=== PATIENT | male | born 1940 | race Caucasian/White ===

== ENCOUNTER 2018-08-21 10:26 | Emergency (ER) | payer OTHER, SELFPAY ==
[2018-08-21 10:50] VITALS: BP 135/73; PULSE 64; RESP 16; TEMP 36.7; O2SAT 98
--- NOTE | 2018-08-21 11:01 | DI.RAD.S_ITS ---
PROCEDURE: XR SHOULDER LT MIN 2V INDICATIONS: sent by PCP, fx, dislocation? TECHNIQUE: 3 views of the shoulder were acquired. COMPARISON: None. FINDINGS: Bones: Left humeral neck fracture is noted. Left humeral distal fracture fragment is proximally displaced. Chronic appearing left rib fractures. Soft tissues: No suspicious soft tissue calcifications. IMPRESSION: Proximal left humerus fracture. Dictated by: America Turner MD, PhD on 08/21/2018 at 11:26 Approved by: America Turner MD, PhD on 08/21/2018 at 11:31
--- NOTE | 2018-08-21 11:22 | ED.UPPEXIN ---
HPI - Extremity Injury (Upper) General Chief Complaint: Extremity Injury, Upper Stated Complaint: FRACTURE SHOULDER/DISLOCATED LT Time Seen by Provider: 08/21/18 10:30 Source: patient and family Mode of arrival: ambulatory Limitations: no limitations History of Present Illness HPI narrative: 77-year-old male nonsmoker with history of metastatic prostate cancer presents for evaluation of a known left shoulder injury suffered Monday night. The patient suffered a mechanical fall and landed on his shoulder and then went to bed. Upon waking he complained of shoulder pain and was seen yesterday at an outside clinic, x-ray was performed and found a fracture dislocation. [facility] encourage them to come to the emergency department for evaluation of the dislocation. The patient denies any other injuries such as head neck or back pain. He has significant chronic pain and takes MS Contin and occasionally oxycodone daily. He is a bit somnolent but arousable and at baseline per son. He has significant pain with range of motion and denies any numbness, tingling or weakness complaint: injury to: left Onset (ago): day(s) Place: home Severity: moderate Relieving factors: immobilization Exacerbating factors: movement of extremity Context: fall and direct blow Associated symptoms: denies other symptoms Related Data Home Medications Medication Instructions Recorded Confirmed abiraterone [Zytiga] 1,000 mg PO DAILY 08/21/18 08/21/18 apixaban [Eliquis] 5 mg PO BID 08/21/18 08/21/18 docusate sodium 100 mg PO BID 08/21/18 08/21/18 furosemide 20 mg PO BID 08/21/18 08/21/18 morphine 15 mg PO Q8H 08/21/18 08/21/18 morphine 100 mg PO Q8H 08/21/18 08/21/18 oxycodone 15 mg PO PRN PRN 08/21/18 08/21/18 potassium chloride 10 meq PO BID 08/21/18 08/21/18 prednisone 5 mg PO BID 08/21/18 08/21/18 Allergies Allergy/AdvReac Type Severity Reaction Status Date / Time No Known Drug Allergies Allergy Verified 08/21/18 10:50 Review of Systems Constitutional Denies chills, Denies fever(s), Denies lethargy and Denies weakness Eyes Denies change in vision, Denies eye discharge, Denies irritation and Denies loss of vision ENT Ears, Nose, Mouth, and Throat: Denies change in voice, Denies neck pain and Denies sore throat Cardiovascular Denies chest pain, Denies irregular heart rhythm, Denies lightheadedness, Denies palpitations, Denies dyspnea, Denies dyspnea on exertion and Denies orthopnea Respiratory Denies cough, Denies dyspnea, Denies dyspnea on exertion and Denies wheezing Gastrointestinal Gastrointestinal: Denies abdominal pain, Denies change in bowel habits, Denies diarrhea, Denies nausea and Denies vomiting Genitourinary Denies hematuria, Denies flank pain, Denies urinary incontinence and Denies urinary urgency Musculoskeletal Reports joint swelling, Reports limited range of motion and Denies neck pain Integumentary/Breasts Denies pruritus, Denies erythema, Denies rash and Denies wounds Neurologic Denies confusion, Denies loss of vision and Denies weakness Psychiatric Denies anxiety, Denies confusion, Denies depression, Denies homicidal ideation and Denies suicidal ideation Endocrine Denies palpitations Hematologic/Lymphatic Denies easy bruising Allergic/Immunologic Denies wheezing Exam Narrative Exam Narrative: GENERAL: 77-year-old male appears stated age. He is somnolent, medicated on MS Contin, but arousable. He appears chronically ill HEAD: Atraumatic. Normocephalic. No temporal or scalp tenderness. EYES: Pupils equal round and reactive. Extraocular motions intact. No scleral icterus. No injection or drainage. ENT: Nose without bleeding, purulent drainage or septal hematoma. Throat without erythema, tonsillar hypertrophy or exudate. Uvula midline. Airway patent. NECK: Trachea midline. No JVD or lymphadenopathy. Supple, nontender, no meningeal signs. CARDIOVASCULAR: Regular rate and rhythm without murmurs, gallops, or rubs. RESPIRATORY: Clear to auscultation. Breath sounds equal bilaterally. No wheezes, rales, or rhonchi. GASTROINTESTINAL: Abdomen soft, non-tender, nondistended. No hepato-splenomegaly, or palpable masses. No guarding. EXTREMITIES: Left upper extremity in splint. Closed, isolated and neurovascularly intact. Cap refill less than 2 sec. No pain at wrist or elbow BACK: Nontender without deformity or crepitance. No flank tenderness. NEURO: AOx3. SKIN: No rash or erythema. Initial Vital Signs Initial Vital Signs: Vital Signs Temperature 98.1 F 08/21/18 10:50 Pulse Rate 64 08/21/18 10:50 Respiratory Rate 16 08/21/18 10:50 Blood Pressure 135/73 08/21/18 10:50 Pulse Oximetry 98 08/21/18 10:50 Course Orders Ordered: ED Orders 08/21/18 11:01 XR shoulder LT min 2V Stat 08/21/18 12:34 CT UE LT wo con Stat Consultations Consultation #1: Upon completion shoulder x-ray and consulted with Orthopedic surgery to see if they had been involved in the discussion about patient coming to the [facility]. We share the opinion that the images do not demonstrate a dislocated shoulder and then no procedural sedation or procedure at all is needed. Dr. garcia has reviewed the images and recommends CT of the shoulder for further evaluation. Vital Signs - 8 hr 08/21/18 12:13 08/21/18 12:30 Pulse Rate 65 Respiratory Rate 17 Blood Pressure [Right Arm] 130/58 L 109/65 Pulse Oximetry 95 MDM - Extremity Injury (Upper) Medical Records Attestation: I reviewed the patient's medical records. Lab Data Attestation: I reviewed the patient's lab results. Imaging Data Shoulder Xray: Radiologist's impression: [address] [address] XRay Report Signed Patient: Evan Huffman HMR#: [id number] : 1940Acct:[id number] Age/Sex: 77 / MDate of Service: 08/21/18 Loc: ED Accession Number: [id number] Procedure: XR shoulder LT min 2V Ordering Provider: Eliseo Rebolledo D.O. PROCEDURE: XR SHOULDER LT MIN 2V INDICATIONS: sent by PCP, fx, dislocation? TECHNIQUE: 3 views of the shoulder were acquired. COMPARISON: None. FINDINGS: Bones: Left humeral neck fracture is noted. Left humeral distal fracture fragment is proximally displaced. Chronic appearing left rib fractures. Soft tissues: No suspicious soft tissue calcifications. IMPRESSION: Proximal left humerus fracture. Dictated by: America Turner MD, PhD on 08/21/2018 at 11:[address]: Radiologist's impression: [address] [address] [address] Scan Report Signed Patient: Evan Huffman HMR#: [id number] : 1940Acct:[id number] Age/Sex: 77 / MDate of Service: 08/21/18 Loc: ED Accession Number: [id number] Procedure: CT UE LT wo con Ordering Provider: Eliseo Rebolledo D.O. PROCEDURE: CT UE LT WO CON INDICATIONS: proximal humerus fx, request per ortho TECHNIQUE: Noncontrast 1-1.5 mm thick sections acquired from the acromioclavicular joint to the inferior scapula, with coronal and sagittal reformatting. COMPARISON: [facility], [place], BONE SCAN WHOLE BODY, 08/25/2016, 14:54. [facility], , XR SHOULDER LT MIN 2V, 08/21/2018, 11:07. FINDINGS: Image quality: Excellent. Bones: Fracture of the proximal left humerus is noted. Fracture lucencies extend through the humeral neck and the greater tuberosity. The humeral shaft is displaced approximately 1.2 cm proximally. Greater tuberosity fracture is nondisplaced. Humeral head is slightly angulated approximately 30-40? laterally. Chronic appearing left fourth, fifth, sixth, seventh, eighth and ninth rib fractures are noted. Multiple sclerotic lesions are noted in the spine, ribs and left clavicle compatible with known osseous metastatic disease. Soft tissues: A soft tissue hematoma noted adjacent to the proximal left humerus fracture. Emphysematous changes noted in the visualized lungs. Left lung is clear of acute opacities. IMPRESSION: 1. Acute, comminuted proximal right humerus fracture (NEER 2 part fracture). 3. Chronic appearing left rib fractures. 4. Sclerotic osseous metastatic disease. Dictated by: America Turner MD, PhD on 08/21/2018 at 12:24 Approved by: America Turner MD, PhD on 08/21/2018 at 12:33 [facility] Narrative Medical decision making narrative: 77-year-old male with metastatic prostate cancer presents with son for evaluation of fracture dislocation of his left shoulder. Patient had obtained x-rays at an outside facility and after consultation with orthopedics they were encouraged to come see us. Today's x-rays do not demonstrate any dislocation. Patient is already in the appropriate splint and has significant pain meds at his disposal at home. patient and son have had their questions answered to their apparent satisfaction Discharge Plan Departure Patient Disposition: Home Clinical Impression: Fracture of humerus Qualifiers: Encounter type: subsequent encounter Humerus Location: proximal Fracture type: closed Fracture alignment: displaced Laterality: left Fracture healing: with routine healing Discharge Date/Time: 08/21/18 13:07 Interventions: ED Discharge Assessment Last Done: 08/21/18 12:52 Instructions: DI for Shoulder Fracture Activity Restrictions/Additional Instructions: *You have been diagnosed with [ left proximal humerus fracture ] *What to do: *continue to take medications as directed *Follow up with [facility] *Return to ER if you should have any new, worsening or concerning symptoms, such as [increasing pain, numbness, tingling, or weakness ] Prescriptions: No Action morphine 100 mg Tablet Extended Release 100 mg PO Q8H RF: 0 morphine 15 mg Tablet Extended Release 15 mg PO Q8H RF: 0 furosemide 20 mg Tablet 20 mg PO BID RF: 0 Eliquis 5 mg Tablet 5 mg PO BID RF: 0 prednisone 5 mg tablet 5 mg PO BID RF: 0 potassium chloride 10 mEq Tablet Extended Release 10 meq PO BID RF: 0 oxycodone 15 mg Tablet 15 mg PO PRN PRN (Reason: Breakthrough Pain) RF: 0 docusate sodium 100 mg Tablet 100 mg PO BID RF: 0 abiraterone [Zytiga] 250 mg Tablet 1,000 mg PO DAILY RF: 0 Referrals: Dio Alan MD [Physician] - Dio Muniz MD [Primary Care Provider] -
--- NOTE | 2018-08-21 11:26 | ED_ITS ---
HPI - Extremity Injury (Upper) General Chief Complaint: Extremity Injury, Upper Stated Complaint: FRACTURE SHOULDER/DISLOCATED LT Time Seen by Provider: 08/21/18 10:30 Source: patient and family Mode of arrival: ambulatory Limitations: no limitations History of Present Illness HPI narrative: 77-year-old male nonsmoker with history of metastatic prostate cancer presents for evaluation of a known left shoulder injury suffered Monday night. The patient suffered a mechanical fall and landed on his shoulder and then went to bed. Upon waking he complained of shoulder pain and was seen yesterday at an outside clinic, x-ray was performed and found a fracture dislocation. [facility] encourage them to come to the emergency department for evaluation of the dislocation. The patient denies any other injuries such as head neck or back pain. He has significant chronic pain and takes MS Contin and occasionally oxycodone daily. He is a bit somnolent but arousable and at baseline per son. He has significant pain with range of motion and denies any numbness, tingling or weakness complaint: injury to: left Onset (ago): day(s) Place: home Severity: moderate Relieving factors: immobilization Exacerbating factors: movement of extremity Context: fall and direct blow Associated symptoms: denies other symptoms Related Data Home Medications Medication Instructions Recorded Confirmed abiraterone [Zytiga] 1,000 mg PO DAILY 08/21/18 08/21/18 apixaban [Eliquis] 5 mg PO BID 08/21/18 08/21/18 docusate sodium 100 mg PO BID 08/21/18 08/21/18 furosemide 20 mg PO BID 08/21/18 08/21/18 morphine 15 mg PO Q8H 08/21/18 08/21/18 morphine 100 mg PO Q8H 08/21/18 08/21/18 oxycodone 15 mg PO PRN PRN 08/21/18 08/21/18 potassium chloride 10 meq PO BID 08/21/18 08/21/18 prednisone 5 mg PO BID 08/21/18 08/21/18 Allergies Allergy/AdvReac Type Severity Reaction Status Date / Time No Known Drug Allergies Allergy Verified 08/21/18 10:50 Review of Systems Constitutional Denies chills, Denies fever(s), Denies lethargy and Denies weakness Eyes Denies change in vision, Denies eye discharge, Denies irritation and Denies loss of vision ENT Ears, Nose, Mouth, and Throat: Denies change in voice, Denies neck pain and Denies sore throat Cardiovascular Denies chest pain, Denies irregular heart rhythm, Denies lightheadedness, Denies palpitations, Denies dyspnea, Denies dyspnea on exertion and Denies orthopnea Respiratory Denies cough, Denies dyspnea, Denies dyspnea on exertion and Denies wheezing Gastrointestinal Gastrointestinal: Denies abdominal pain, Denies change in bowel habits, Denies diarrhea, Denies nausea and Denies vomiting Genitourinary Denies hematuria, Denies flank pain, Denies urinary incontinence and Denies urinary urgency Musculoskeletal Reports joint swelling, Reports limited range of motion and Denies neck pain Integumentary/Breasts Denies pruritus, Denies erythema, Denies rash and Denies wounds Neurologic Denies confusion, Denies loss of vision and Denies weakness Psychiatric Denies anxiety, Denies confusion, Denies depression, Denies homicidal ideation and Denies suicidal ideation Endocrine Denies palpitations Hematologic/Lymphatic Denies easy bruising Allergic/Immunologic Denies wheezing Exam Narrative Exam Narrative: GENERAL: 77-year-old male appears stated age. He is somnolent, medicated on MS Contin, but arousable. He appears chronically ill HEAD: Atraumatic. Normocephalic. No temporal or scalp tenderness. EYES: Pupils equal round and reactive. Extraocular motions intact. No scleral icterus. No injection or drainage. ENT: Nose without bleeding, purulent drainage or septal hematoma. Throat without erythema, tonsillar hypertrophy or exudate. Uvula midline. Airway patent. NECK: Trachea midline. No JVD or lymphadenopathy. Supple, nontender, no meningeal signs. CARDIOVASCULAR: Regular rate and rhythm without murmurs, gallops, or rubs. RESPIRATORY: Clear to auscultation. Breath sounds equal bilaterally. No wheezes, rales, or rhonchi. GASTROINTESTINAL: Abdomen soft, non-tender, nondistended. No hepato- splenomegaly, or palpable masses. No guarding. EXTREMITIES: Left upper extremity in splint. Closed, isolated and neurovascularly intact. Cap refill less than 2 sec. No pain at wrist or elbow BACK: Nontender without deformity or crepitance. No flank tenderness. NEURO: AOx3. SKIN: No rash or erythema. Initial Vital Signs Initial Vital Signs: Vital Signs Temperature 98.1 F 08/21/18 10:50 Pulse Rate 64 08/21/18 10:50 Respiratory Rate 16 08/21/18 10:50 Blood Pressure 135/73 08/21/18 10:50 Pulse Oximetry 98 08/21/18 10:50 Course Orders Ordered: ED Orders 08/21/18 11:01 XR shoulder LT min 2V Stat 08/21/18 12:34 CT UE LT wo con Stat Consultations Consultation #1: Upon completion shoulder x-ray and consulted with Orthopedic surgery to see if they had been involved in the discussion about patient coming to the [facility]. We share the opinion that the images do not demonstrate a dislocated shoulder and then no procedural sedation or procedure at all is needed. Dr. garcia has reviewed the images and recommends CT of the shoulder for further evaluation. Vital Signs - 8 hr 08/21/18 12:13 08/21/18 12:30 Pulse Rate 65 Respiratory Rate 17 Blood Pressure [Right Arm] 130/58 L 109/65 Pulse Oximetry 95 MDM - Extremity Injury (Upper) Medical Records Attestation: I reviewed the patient's medical records. Lab Data Attestation: I reviewed the patient's lab results. Imaging Data Shoulder Xray: Radiologist's impression: [address] [address] XRay Report Signed Patient: Evan Huffman HMR#: [id number] : 1940Acct:[id number] Age/Sex: 77 / MDate of Service: 08/21/18 Loc: ED Accession Number: [id number] Procedure: XR shoulder LT min 2V Ordering Provider: Eliseo Rebolledo D.O. PROCEDURE: XR SHOULDER LT MIN 2V INDICATIONS: sent by PCP, fx, dislocation? TECHNIQUE: 3 views of the shoulder were acquired. COMPARISON: None. FINDINGS: Bones: Left humeral neck fracture is noted. Left humeral distal fracture fragment is proximally displaced. Chronic appearing left rib fractures. Soft tissues: No suspicious soft tissue calcifications. IMPRESSION: Proximal left humerus fracture. Dictated by: America Turner MD, PhD on 08/21/2018 at 11:[address]: Radiologist's impression: [address] [address] [address] Scan Report Signed Patient: Evan Huffman HMR#: [id number] : 1940Acct:[id number] Age/Sex: 77 / MDate of Service: 08/21/18 Loc: ED Accession Number: [id number] Procedure: CT UE LT wo con Ordering Provider: Eliseo Rebolledo D.O. PROCEDURE: CT UE LT WO CON INDICATIONS: proximal humerus fx, request per ortho TECHNIQUE: Noncontrast 1-1.5 mm thick sections acquired from the acromioclavicular joint to the inferior scapula, with coronal and sagittal reformatting. COMPARISON: [facility], [place], BONE SCAN WHOLE BODY, 08/25/2016, 14:54. [facility], , XR SHOULDER LT MIN 2V, 08/21/2018, 11:07. FINDINGS: Image quality: Excellent. Bones: Fracture of the proximal left humerus is noted. Fracture lucencies extend through the humeral neck and the greater tuberosity. The humeral shaft is displaced approximately 1.2 cm proximally. Greater tuberosity fracture is nondisplaced. Humeral head is slightly angulated approximately 30-40? laterally. Chronic appearing left fourth, fifth, sixth, seventh, eighth and ninth rib fractures are noted. Multiple sclerotic lesions are noted in the spine, ribs and left clavicle compatible with known osseous metastatic disease. Soft tissues: A soft tissue hematoma noted adjacent to the proximal left humerus fracture. Emphysematous changes noted in the visualized lungs. Left lung is clear of acute opacities. IMPRESSION: 1. Acute, comminuted proximal right humerus fracture (NEER 2 part fracture). 3. Chronic appearing left rib fractures. 4. Sclerotic osseous metastatic disease. Dictated by: America Turner MD, PhD on 08/21/2018 at 12:24 Approved by: America Turner MD, PhD on 08/21/2018 at 12:33 [facility] Narrative Medical decision making narrative: 77-year-old male with metastatic prostate cancer presents with son for evaluation of fracture dislocation of his left shoulder. Patient had obtained x-rays at an outside facility and after consultation with orthopedics they were encouraged to come see us. Today's x- rays do not demonstrate any dislocation. Patient is already in the appropriate splint and has significant pain meds at his disposal at home. patient and son have had their questions answered to their apparent satisfaction Discharge Plan Departure Patient Disposition: Home Clinical Impression: Fracture of humerus Qualifiers: Encounter type: subsequent encounter Humerus Location: proximal Fracture type: closed Fracture alignment: displaced Laterality: left Fracture healing: with routine healing Discharge Date/Time: 08/21/18 13:07 Interventions: ED Discharge Assessment Last Done: 08/21/18 12:52 Instructions: DI for Shoulder Fracture Activity Restrictions/Additional Instructions: *You have been diagnosed with [ left proximal humerus fracture ] *What to do: *continue to take medications as directed *Follow up with [facility] *Return to ER if you should have any new, worsening or concerning symptoms, such as [increasing pain, numbness, tingling, or weakness ] Prescriptions: No Action morphine 100 mg Tablet Extended Release 100 mg PO Q8H RF: 0 morphine 15 mg Tablet Extended Release 15 mg PO Q8H RF: 0 furosemide 20 mg Tablet 20 mg PO BID RF: 0 Eliquis 5 mg Tablet 5 mg PO BID RF: 0 prednisone 5 mg tablet 5 mg PO BID RF: 0 potassium chloride 10 mEq Tablet Extended Release 10 meq PO BID RF: 0 oxycodone 15 mg Tablet 15 mg PO PRN PRN (Reason: Breakthrough Pain) RF: 0 docusate sodium 100 mg Tablet 100 mg PO BID RF: 0 abiraterone [Zytiga] 250 mg Tablet 1,000 mg PO DAILY RF: 0 Referrals: Dio Alan MD [Physician] - Dio Muniz MD [Primary Care Provider] -
[2018-08-21 11:30] VITALS: BP 122/60
[2018-08-21 12:13] VITALS: BP 130/58
[2018-08-21 12:30] VITALS: BP 109/65; PULSE 65; RESP 17; O2SAT 95
--- NOTE | 2018-08-21 12:34 | DI.CT.S_ITS ---
PROCEDURE: CT UE LT WO CON INDICATIONS: proximal humerus fx, request per ortho TECHNIQUE: Noncontrast 1-1.5 mm thick sections acquired from the acromioclavicular joint to the inferior scapula, with coronal and sagittal reformatting. COMPARISON: [facility], [place], BONE SCAN WHOLE BODY, 08/25/2016, 14:54. [facility], , XR SHOULDER LT MIN 2V, 08/21/2018, 11:07. FINDINGS: Image quality: Excellent. Bones: Fracture of the proximal left humerus is noted. Fracture lucencies extend through the humeral neck and the greater tuberosity. The humeral shaft is displaced approximately 1.2 cm proximally. Greater tuberosity fracture is nondisplaced. Humeral head is slightly angulated approximately 30-40? laterally. Chronic appearing left fourth, fifth, sixth, seventh, eighth and ninth rib fractures are noted. Multiple sclerotic lesions are noted in the spine, ribs and left clavicle compatible with known osseous metastatic disease. Soft tissues: A soft tissue hematoma noted adjacent to the proximal left humerus fracture. Emphysematous changes noted in the visualized lungs. Left lung is clear of acute opacities. IMPRESSION: 1. Acute, comminuted proximal right humerus fracture (NEER 2 part fracture). 3. Chronic appearing left rib fractures. 4. Sclerotic osseous metastatic disease. Dictated by: America Turner MD, PhD on 08/21/2018 at 12:24 Approved by: America Turner MD, PhD on 08/21/2018 at 12:33
== END 2018-08-21 13:07 | disposition home or self-care (01) ==
PROVIDERS: Emergency Provider Emergency Medicine; Family Provider Family Medicine; PCP Family Medicine
DX: S42.302A Unspecified fracture of shaft of humerus, left arm, initial encounter for closed fracture (principal)
CPT/HCPCS: 73030; 73200; 99283; 99284

== ENCOUNTER 2019-01-23 09:12 | Emergency (ER) | payer OTHER, SELFPAY ==
[2019-01-23] VITALS (8 sets, daily range): BP systolic 117–128; BP diastolic 61–79; PULSE 58–85; RESP 15–20; TEMP 36.2; O2SAT 85–99
--- NOTE | 2019-01-23 09:34 | PC.NURSE ---
discussed c collar w/ Dr. Mauricio. Pt is self splinting and very uncomfortable w/ any position other than chin pointing slightly down. C collar makes pain worse. Hold c collar for now.
--- NOTE | 2019-01-23 10:03 | ED.FALL ---
HPI - Fall General Chief Complaint: Trauma Stated Complaint: TOOK A FALL/ HIT HIS HEAD/TWEAKED NECK Time Seen by Provider: 01/23/19 09:51 Source: family and EMS Limitations: no limitations History of Present Illness HPI Narrative: Patient is a 78-year-old on Eliquis for a DVT in July presenting 2 days after a fall. He fell [place] [facility] [place] he was bending down to tie his shoe when he fell backwards striking his head. He landed on his coccyx. No loss of consciousness no nausea or vomiting. 2 days prior he fell forward and has a contusion around his eye. He is able to open his eye completely. He has no numbness no tingling. Patient seems to have fallen multiple times over the past 1 week. He has metastatic prostate cancer he takes morphine and is using marijuana MD complaint: fall Fall witnessed: yes, by family Place fall occurred: home Prolonged down time: no Symptoms prior to fall: none Context: tripped/slipped Location of injury: head and face Related Data Home Medications Medication Instructions Recorded Confirmed apixaban [Eliquis] 5 mg PO BID 08/21/18 01/23/19 docusate sodium 100 mg PO BID 08/21/18 01/23/19 furosemide 20 mg PO BID 08/21/18 01/23/19 morphine 15 mg PO Q8H 08/21/18 01/23/19 morphine 100 mg PO Q8H 08/21/18 01/23/19 oxycodone 15 mg PO PRN PRN 08/21/18 01/23/19 potassium chloride 10 meq PO BID 08/21/18 01/23/19 methylphenidate HCl 5 mg PO BID 01/23/19 01/23/19 Allergies Allergy/AdvReac Type Severity Reaction Status Date / Time No Known Drug Allergies Allergy Verified 01/23/19 09:28 Review of Systems Review of Systems GENERAL: Denies chills,fever HEENT: Denies throat pain RESPIRATORY: Denies dyspnea, cough, wheezing CARDIOVASCULAR: Denies chest pain, palpitations GASTROINTESTINAL: Denies nausea, vomiting MUSCULOSKELETAL: Denies extremity pain, injury SKIN: No rash, no laceration, no pruritus NEUROLOGIC: Denies weakness, dizziness, headache, numbness 8 point review of systems is negative except for those stated above and HPI Exam Initial Vital Signs Initial Vital Signs: Vital Signs Temperature 97.1 F L 01/23/19 09:19 Pulse Rate 58 L 01/23/19 09:19 Respiratory Rate 20 01/23/19 09:19 Blood Pressure 128/79 01/23/19 09:19 Pulse Oximetry 85 L 01/23/19 09:19 GENERAL: Alert frail elderly male and in no acute distress. HEENT: Head no cranial contusion or depression. Right periorbital contusion noted. NECK: Midline tenderness patient adamantly refusing C-collar. He has actually been self splinting for the last 2 days and adamantly refused uses any sort of collar CARDIOVASCULAR: Regular rate and rhythm without murmurs, rubs or gallops. RESPIRATORY: Breath sounds equal bilaterally, no wheezes rales or rhonchi. ABDOMEN: Soft, nontender. Normoactive bowel sounds all 4 quadrants. No guarding or rebound. BACK: No vertebral tenderness no step-offs no sign of trauma tender in coccyx area EXTREMITIES: Normal range of motion, no clubbing or edema. Neurovascularly intact plumber supervisor strength equal bilaterally NEUROLOGICAL: Alert and oriented x4.Normal gait and speech. Cranial nerves II through XII grossly intact. Vice President [employer] strength equal bilaterally SKIN: Warm, dry, no laceration, no petechiae, no rashes or lesions. Facial contusion noted [facility] Medical History DVT (deep venous thrombosis) (Acute) Social History Smoking Status: Former smoker Social History Smoking Status: Former smoker Course Orders Ordered: ED Orders 01/23/19 09:42 Complete Blood Count AUTO DIFF Stat Comprehensive Metabolic Panel Stat Partial Thromboplastin Time Stat Prothrombin Time INR Stat 01/23/19 10:02 XR sacroiliac joint min 3V Stat 01/23/19 10:31 CT cervical spine wo con Stat CT head/brain wo con Stat 01/23/19 11:05 XR chest 1V Stat Discontinued Medications Hydromorphone HCl (Dilaudid) 0.5 mg IV NOW ONE Stop: 01/23/19 11:25 Last Admin: 01/23/19 11:28 Dose: 0.5 mg Vital Signs - 8 hr 01/23/19 10:30 01/23/19 11:00 01/23/19 11:30 Pulse Rate 76 75 75 Respiratory Rate 16 17 Blood Pressure [Right Arm] 118/62 120/72 117/61 Pulse Oximetry 97 97 96 01/23/19 12:00 01/23/19 12:30 Pulse Rate 78 69 Respiratory Rate 18 15 Blood Pressure [Right Arm] 125/69 117/61 Pulse Oximetry 98 94 MDM - Fall Lab Data Attestation: I reviewed the patient's lab results. Result diagrams: 01/23/19 09:42 01/23/19 09:42 Lab Results 01/23/19 01/23/19 01/23/19 Range/Units 09:42 09:42 09:42 WBC 8.0 (4.5-11.0) X10^3/uL RBC 3.03 L (4.5-5.9) X10^6/uL Hgb 9.4 L (13.5-17.5) g/dL Hct 28.6 L (41-53) % MCV 94.2 (80-100) fL MCH 30.9 (26-34) PG MCHC 32.8 (30-36) % RDW 23.7 H (11.6-14.8) % Plt Count 121 L (150-400) X10^3/uL Neut % (Auto) 80.9 H (50-75) % Lymph % (Auto) 12.2 L (25-40) % [place] % (Auto) 4.5 (3-14) % Eos % (Auto) 1.5 L (2-4) % Baso % (Auto) 0.9 (0-2) % Neut # (Auto) 6400 (2693-8527) /uL Lymph # (Auto) 1000 L (1206-3301) /uL [place] # (Auto) 400 (0-900) /uL Eos # (Auto) 100 (0-450) /uL Baso # (Auto) 100 (0-100) /uL RBC Morphology Not Reportable Polychromasia 2+ H Anisocytosis 2+ H PT 19.0 H (10.1-12.7) SECONDS INR 1.6 H (0.9-1.3) APTT 33 (26.4-36.2) SECONDS Sodium 136 L (137-145) mmol/L Potassium 4.1 (3.4-5.1) mmol/L Chloride 99 (98-107) mmol/L Carbon Dioxide 30 (22-32) mmol/L BUN 61 H (9-20) mg/dL Creatinine 1.10 (0.66-1.25) mg/dL Estimated GFR > 60.0 (>60) mL/min BUN/Creatinine Ratio 55.5 H (6-22) Glucose 98 (80-110) mg/dL Calcium 8.1 L (8.4-10.2) mg/dL Total Bilirubin 1.1 (0.2-1.3) mg/dL AST 57 (17-59) IU/L ALT 18 L (21-72) IU/L Alkaline Phosphatase 274 H (38-126) U/L Total Protein 5.8 L (6.3-8.2) g/dL Albumin 2.7 L (3.5-5.0) g/dL Globulin 3.1 (1.7-4.1) g/dL Albumin/Globulin Ratio 0.9 L (1.0-2.8) Imaging Data CT scan - head: Radiologist's impression: PROCEDURE: CT HEAD/BRAIN WO CON INDICATIONS: fall 2 days ago on eliquis TECHNIQUE: Noncontrast 4.5 mm thick angled axial sections acquired from the foramen magnum to the vertex, with coronal and sagittal reformats. For radiation dose reduction, the following was used: automated exposure control, adjustment of mA and/or kV according to patient size. COMPARISON: None. FINDINGS: Image quality: Excellent. CSF spaces: Basal cisterns are patent. No extra-axial fluid collections. The ventricles are symmetric in size and shape. There is mild cerebral volume loss, with resultant ventricular and sulcal prominence. Brain: No intracranial hemorrhage, mass, or mass effect. There are subcortical, periventricular and deep white matter hypodensities consistent with mild chronic small vessel ischemic changes. There is intracranial internal carotid artery atherosclerosis. Skull and face: Calvarium and visualized facial bones appear intact, without suspicious lesions. Sinuses: Visualized sinuses and mastoids are clear. IMPRESSION: 1. No acute intracranial abnormality. 2. Mild cerebral volume loss and chronic white matter small vessel ischemic changes. Dictated by: Jimmy Andrade M.D. on 01/23/2019 at 10:47 ct cervical: Radiologist's impression: PROCEDURE: CT CERVICAL SPINE WO CON INDICATIONS: severe neck pain after fall 2 days ago TECHNIQUE: Noncontrast 3 mm thick sections acquired from the skull base to the T4 level. Sagittal and coronal reformats were then constructed. For radiation dose reduction, the following was used: automated exposure control, adjustment of mA and/or kV according to patient size. COMPARISON: Merged With [facility], [place], BONE SCAN WHOLE BODY, 08/25/2016, 14:54. Merged With [facility], CT, CT UE LT WO CON, 08/21/2018, 12:03. FINDINGS: Image quality: There is mild motion artifact. Bones: The visualized osseous structures demonstrate a diffusely heterogeneous mottled appearance consistent with extensive osseous metastatic disease as seen on the prior studies. There is a comminuted fracture of C2 with mild impaction at the base of the odontoid. Fracture also involves the posterior elements including the right pedicle and spinous process. No other definite acute fracture within the cervical spine. There are mild superior endplate compression deformities of the T2 and T3 vertebral bodies of indeterminate acuity. There is fusion of the C5 and C6 vertebral bodies. There is a mildly displaced acute appearing fracture in the right scapula through the base of the coracoid process. An old left humeral neck fracture is redemonstrated. Soft tissues: There is mild prevertebral soft tissue swelling at C1-C2. No paravertebral hematomas. No apical pneumothoraces. There are small to moderate pleural effusions within the visualized lungs with areas of atelectasis. IMPRESSION: 1. Comminuted fracture of C2 as described. 2. Mild superior endplate compression deformities of the T2 and T3 vertebral bodies of indeterminate acuity. 3. Extensive osseous metastatic disease redemonstrated. 4. Mildly displaced acute appearing fracture of the right scapula through the base of the coracoid process. 5. Bilateral pleural effusions partially visualized. Recommend dedicated chest x-ray for further evaluation. 6. Old left humeral neck fracture. Findings discussed with Dr. Mauricio on 01/23/19 at 10:55 AM. Dictated by: Jimmy Andrade M.D. on 01/23/2019 at 10:49 Approved by: Jimmy Andrade M.D. on 01/23/2019 at 11:03 sacroilliac: Radiologist's impression: PROCEDURE: XR SACROILIAC JOINT MIN 3V INDICATIONS: fall pain TECHNIQUE: 3 views of the sacroiliac joints were acquired. COMPARISON: Merged With [facility], [place], BONE SCAN WHOLE BODY, 08/25/2016, 14:54. Merged With [facility], CT, PELVIS WITH CONTRAST, 03/18/2016, 7:38. FINDINGS: Bones: No definite fracture identified. No bony erosions or ankylosis along the sacroiliac joints. There are scattered sclerotic and lytic lesions within the visualized osseous structures consistent with extensive osseous metastatic disease. Soft tissues: Overlying bowel gas pattern is normal. No suspicious soft tissue densities. IMPRESSION: 1. No definite fracture visualized. However, if clinical concern persists, recommend further evaluation with CT. 2. Extensive osseous metastatic disease redemonstrated. Dictated by: Jimmy Andrade M.D. on 01/23/2019 at 11:10 Chest x-ray: Radiologist's impression: PROCEDURE: XR CHEST 1V INDICATIONS: hypoxia TECHNIQUE: One view of the chest was acquired. COMPARISON: None. FINDINGS: Surgical changes and devices: None. Lungs and pleura: Prominent perihilar interstitial markings are identified. There are hazy bibasilar areas of increased attenuation to partially obscure the diaphragms. No definite pneumothorax is appreciated. Mediastinum: Mediastinal contours appear normal. Heart size is borderline enlarged. Bones and chest wall: No suspicious bony lesions. Overlying soft tissues appear unremarkable. IMPRESSION: 1. Moderate pulmonary vascular congestion with associated by lateral layering pleural effusions. Superimposed pneumonia is difficult to exclude. 2. Borderline cardiomegaly. Dictated by: Keith Cobos M.D. on 01/23/2019 at 10:32 MDM Narrative Medical decision making narrative: Patient is found have a C2 fracture. Placed in [place] collar and given pain medication Dilaudid. I have called and spoken with [facility] ED . He has been updated patient's symptoms test results. Agrees for transfer. I spoke with patient and patient's son. They agree to ambulance transfer to [facility]. Patient is an extremely high fall risk and should not be on Eliquis. Discharge Plan Departure Patient Disposition: [facility] Clinical Impression: C2 cervical fracture Qualifiers: Encounter type: initial encounter Fracture type: closed Fracture morphology: unspecified fracture morphology Fracture alignment: nondisplaced Qualified Code(s): S12.101A - Unspecified nondisplaced fracture of second cervical vertebra, initial encounter for closed fracture Closed fracture of right scapula Qualifiers: Encounter type: initial encounter Scapula location: coracoid process Fracture alignment: displaced Qualified Code(s): S42.131A - Displaced fracture of coracoid process, right shoulder, initial encounter for closed fracture Discharge Date/Time: 01/23/19 13:02 Interventions: ED Discharge Assessment Last Done: 01/23/19 13:01 Prescriptions: No Action morphine 100 mg Tablet Extended Release 100 mg PO Q8H RF: 0 morphine 15 mg Tablet Extended Release 15 mg PO Q8H RF: 0 furosemide 20 mg Tablet 20 mg PO BID RF: 0 Eliquis 5 mg Tablet 5 mg PO BID RF: 0 potassium chloride 10 mEq Tablet Extended Release 10 meq PO BID RF: 0 oxycodone 15 mg Tablet 15 mg PO PRN PRN (Reason: Breakthrough Pain) RF: 0 docusate sodium 100 mg Tablet 100 mg PO BID RF: 0 methylphenidate HCl 5 mg Tablet 5 mg PO BID RF: 0 Referrals: Dio Muniz MD [Primary Care Provider] -
--- NOTE | 2019-01-23 10:07 | ED_ITS ---
HPI - Fall General Chief Complaint: Trauma Stated Complaint: TOOK A FALL/ HIT HIS HEAD/TWEAKED NECK Time Seen by Provider: 01/23/19 09:51 Source: family and EMS Limitations: no limitations History of Present Illness HPI Narrative: Patient is a 78-year-old on Eliquis for a DVT in July presenting 2 days after a fall. [place] [facility] [place] he was bending down to tie his shoe when he fell backwards striking his head. He landed on his coccyx. No loss of consciousness no nausea or vomiting. 2 days prior he fell forward and has a contusion around his eye. He is able to open his eye completely. He has no numbness no tingling. Patient seems to have fallen multiple times over the past 1 week. He has metastatic prostate cancer he takes morphine and is using marijuana MD complaint: fall Fall witnessed: yes, by family Place fall occurred: home Prolonged down time: no Symptoms prior to fall: none Context: tripped/slipped Location of injury: head and face Related Data Home Medications Medication Instructions Recorded Confirmed apixaban [Eliquis] 5 mg PO BID 08/21/18 01/23/19 docusate sodium 100 mg PO BID 08/21/18 01/23/19 furosemide 20 mg PO BID 08/21/18 01/23/19 morphine 15 mg PO Q8H 08/21/18 01/23/19 morphine 100 mg PO Q8H 08/21/18 01/23/19 oxycodone 15 mg PO PRN PRN 08/21/18 01/23/19 potassium chloride 10 meq PO BID 08/21/18 01/23/19 methylphenidate HCl 5 mg PO BID 01/23/19 01/23/19 Allergies Allergy/AdvReac Type Severity Reaction Status Date / Time No Known Drug Allergies Allergy Verified 01/23/19 09:28 Review of Systems Review of Systems GENERAL: Denies chills,fever HEENT: Denies throat pain RESPIRATORY: Denies dyspnea, cough, wheezing CARDIOVASCULAR: Denies chest pain, palpitations GASTROINTESTINAL: Denies nausea, vomiting MUSCULOSKELETAL: Denies extremity pain, injury SKIN: No rash, no laceration, no pruritus NEUROLOGIC: Denies weakness, dizziness, headache, numbness 8 point review of systems is negative except for those stated above and HPI Exam Initial Vital Signs Initial Vital Signs: Vital Signs Temperature 97.1 F L 01/23/19 09:19 Pulse Rate 58 L 01/23/19 09:19 Respiratory Rate 20 01/23/19 09:19 Blood Pressure 128/79 01/23/19 09:19 Pulse Oximetry 85 L 01/23/19 09:19 GENERAL: Alert frail elderly male and in no acute distress. HEENT: Head no cranial contusion or depression. Right periorbital contusion noted. NECK: Midline tenderness patient adamantly refusing C-collar. He has actually been self splinting for the last 2 days and adamantly refused uses any sort of collar CARDIOVASCULAR: Regular rate and rhythm without murmurs, rubs or gallops. RESPIRATORY: Breath sounds equal bilaterally, no wheezes rales or rhonchi. ABDOMEN: Soft, nontender. Normoactive bowel sounds all 4 quadrants. No guarding or rebound. BACK: No vertebral tenderness no step-offs no sign of trauma tender in coccyx area EXTREMITIES: Normal range of motion, no clubbing or edema. Neurovascularly intact social welfare clerk strength equal bilaterally NEUROLOGICAL: Alert and oriented x4.Normal gait and speech. Cranial nerves II through XII grossly intact. Business Office Coordinator strength equal bilaterally SKIN: Warm, dry, no laceration, no petechiae, no rashes or lesions. Facial contusion noted [facility] Medical History DVT (deep venous thrombosis) (Acute) Social History Smoking Status: Former smoker Social History Smoking Status: Former smoker Course Orders Ordered: ED Orders 01/23/19 09:42 Complete Blood Count AUTO DIFF Stat Comprehensive Metabolic Panel Stat Partial Thromboplastin Time Stat Prothrombin Time INR Stat 01/23/19 10:02 XR sacroiliac joint min 3V Stat 01/23/19 10:31 CT cervical spine wo con Stat CT head/brain wo con Stat 01/23/19 11:05 XR chest 1V Stat Discontinued Medications Hydromorphone HCl (Dilaudid) 0.5 mg IV NOW ONE Stop: 01/23/19 11:25 Last Admin: 01/23/19 11:28 Dose: 0.5 mg Vital Signs - 8 hr 01/23/19 10:30 01/23/19 11:00 01/23/19 11:30 Pulse Rate 76 75 75 Respiratory Rate 16 17 Blood Pressure [Right Arm] 118/62 120/72 117/61 Pulse Oximetry 97 97 96 01/23/19 12:00 01/23/19 12:30 Pulse Rate 78 69 Respiratory Rate 18 15 Blood Pressure [Right Arm] 125/69 117/61 Pulse Oximetry 98 94 MDM - Fall Lab Data Attestation: I reviewed the patient's lab results. Result diagrams: 01/23/19 09:42 01/23/19 09:42 Lab Results 01/23/19 01/23/19 01/23/19 Range/Units 09:42 09:42 09:42 WBC 8.0 (4.5-11.0) X10^3/uL RBC 3.03 L (4.5-5.9) X10^6/uL Hgb 9.4 L (13.5-17.5) g/dL Hct 28.6 L (41-53) % MCV 94.2 (80-100) fL MCH 30.9 (26-34) PG MCHC 32.8 (30-36) % RDW 23.7 H (11.6-14.8) % Plt Count 121 L (150-400) X10^3/uL Neut % (Auto) 80.9 H (50-75) % Lymph % (Auto) 12.2 L (25-40) % [place] % (Auto) 4.5 (3-14) % Eos % (Auto) 1.5 L (2-4) % Baso % (Auto) 0.9 (0-2) % Neut # (Auto) 6400 (7103-1489) /uL Lymph # (Auto) 1000 L (0596-7528) /uL [place] # (Auto) 400 (0-900) /uL Eos # (Auto) 100 (0-450) /uL Baso # (Auto) 100 (0-100) /uL RBC Morphology Not Reportable Polychromasia 2+ H Anisocytosis 2+ H PT 19.0 H (10.1-12.7) SECONDS INR 1.6 H (0.9-1.3) APTT 33 (26.4-36.2) SECONDS Sodium 136 L (137-145) mmol/L Potassium 4.1 (3.4-5.1) mmol/L Chloride 99 (98-107) mmol/L Carbon Dioxide 30 (22-32) mmol/L BUN 61 H (9-20) mg/dL Creatinine 1.10 (0.66-1.25) mg/dL Estimated GFR > 60.0 (>60) mL/min BUN/Creatinine Ratio 55.5 H (6-22) Glucose 98 (80-110) mg/dL Calcium 8.1 L (8.4-10.2) mg/dL Total Bilirubin 1.1 (0.2-1.3) mg/dL AST 57 (17-59) IU/L ALT 18 L (21-72) IU/L Alkaline Phosphatase 274 H (38-126) U/L Total Protein 5.8 L (6.3-8.2) g/dL Albumin 2.7 L (3.5-5.0) g/dL Globulin 3.1 (1.7-4.1) g/dL Albumin/Globulin Ratio 0.9 L (1.0-2.8) Imaging Data CT scan - head: Radiologist's impression: PROCEDURE: CT HEAD/BRAIN WO CON INDICATIONS: fall 2 days ago on eliquis TECHNIQUE: Noncontrast 4.5 mm thick angled axial sections acquired from the foramen magnum to the vertex, with coronal and sagittal reformats. For radiation dose reduction, the following was used: automated exposure control, adjustment of mA and/or kV according to patient size. COMPARISON: None. FINDINGS: Image quality: Excellent. CSF spaces: Basal cisterns are patent. No extra-axial fluid collections. The ventricles are symmetric in size and shape. There is mild cerebral volume loss, with resultant ventricular and sulcal prominence. Brain: No intracranial hemorrhage, mass, or mass effect. There are subc ortical, periventricular and deep white matter hypodensities consistent with mild chronic small vessel ischemic changes. There is intracranial internal carotid artery atherosclerosis. Skull and face: Calvarium and visualized facial bones appear intact, without suspicious lesions. Sinuses: Visualized sinuses and mastoids are clear. IMPRESSION: 1. No acute intracranial abnormality. 2. Mild cerebral volume loss and chronic white matter small vessel ischemic changes. Dictated by: Jimmy Andrade M.D. on 01/23/2019 at 10:47 ct cervical: Radiologist's impression: PROCEDURE: CT CERVICAL SPINE WO CON INDICATIONS: severe neck pain after fall 2 days ago TECHNIQUE: Noncontrast 3 mm thick sections acquired from the skull base to the T4 level. Sagittal and coronal reformats were then constructed. For radiation dose reduction, the following was used: automated exposure control, adjustment of mA and/or kV according to patient size. COMPARISON: [facility], [place], BONE SCAN WHOLE BODY, 08/25/2016, 14:54. [facility], CT, CT UE LT WO CON, 08/21/2018, 12:03. FINDINGS: Image quality: There is mild motion artifact. Bones: The visualized osseous structures demonstrate a diffusely heterogeneous mottled appearance consistent with extensive osseous metastatic disease as seen on the prior studies. There is a comminuted fracture of C2 with mild impaction at the base of the odontoid. Fracture also involves the posterior elements including the right pedicle and spinous process. No other definite acute fracture within the cervical spine. There are mild superior endplate compression deformities of the T2 and T3 vertebral bodies of indeterminate acuity. There is fusion of the C5 and C6 vertebral bodies. There is a mildly displaced acute appearing fracture in the right scapula through the base of the coracoid process. An old left humeral neck fracture is redemonstrated. Soft tissues: There is mild prevertebral soft tissue swelling at C1-C2. No paravertebral hematomas. No apical pneumothoraces. There are small to moderate pleural effusions within the visualized lungs with areas of atelectasis. IMPRESSION: 1. Comminuted fracture of C2 as described. 2. Mild superior endplate compression deformities of the T2 and T3 vertebral consuelo dies of indeterminate acuity. 3. Extensive osseous metastatic disease redemonstrated. 4. Mildly displaced acute appearing fracture of the right scapula through the base of the coracoid process. 5. Bilateral pleural effusions partially visualized. Recommend dedicated chest x-ray for further evaluation. 6. Old left humeral neck fracture. Findings discussed with Dr. Mauricio on 01/23/19 at 10:55 AM. Dictated by: Jimmy Andrade M.D. on 01/23/2019 at 10:49 Approved by: Jimmy Andrade M.D. on 01/23/2019 at 11:03 sacroilliac: Radiologist's impression: PROCEDURE: XR SACROILIAC JOINT MIN 3V INDICATIONS: fall pain TECHNIQUE: 3 views of the sacroiliac joints were acquired. COMPARISON: [place], [place], BONE SCAN WHOLE BODY, 08/25/2016, 14:54. [facility], CT, PELVIS WITH CONTRAST, 03/18/2016, 7:38. FINDINGS: Bones: No definite fracture identified. No bony erosions or ankylosis along the sacroiliac joints. There are scattered sclerotic and lytic lesions within the visualized osseous structures consistent with extensive osseous metastatic disease. Soft tissues: Overlying bowel gas pattern is normal. No suspicious soft tissue densities. IMPRESSION: 1. No definite fracture visualized. However, if clinical concern persists, recommend further evaluation with CT. 2. Extensive osseous metastatic disease redemonstrated. Dictated by: Jimmy Andrade M.D. on 01/23/2019 at 11:10 Chest x-ray: Radiologist's impression: PROCEDURE: XR CHEST 1V INDICATIONS: hypoxia TECHNIQUE: One view of the chest was acquired. COMPARISON: None. FINDINGS: Surgical changes and devices: None. Lungs and pleura: Prominent perihilar interstitial markings are identified. There are hazy bibasilar areas of increased attenuation to partially obscure the diaphragms. No definite pneumothorax is appreciated. Mediastinum: Mediastinal contours appear normal. Heart size is borderline enlarged. Bones and chest wall: No suspicious bony lesions. Overlying soft tissues appear unremarkable. IMPRESSION: 1. Moderate pulmonary vascular congestion with associated by lateral layering pleural effusions. Superimposed pneumonia is difficult to exclude. 2. Borderline cardiomegaly. Dictated by: Keith Cobos M.D. on 01/23/2019 at 10:32 MDM Narrative Medical decision making narrative: Patient is found have a C2 fracture. Placed in [place] collar and given pain medication Dilaudid. I have called and spoken with [facility] ED . He has been updated patient's symptoms test results. Agrees for transfer. I spoke with patient and patient's son. They agree to ambulance transfer to [facility]. Patient is an extremely high fall risk and should not be on Eliquis. Discharge Plan Departure Patient Disposition: [facility] Clinical Impression: C2 cervical fracture Qualifiers: Encounter type: initial encounter Fracture type: closed Fracture morphology: unspecified fracture morphology Fracture alignment: nondisplaced Qualified Code(s): S12.101A - Unspecified nondisplaced fracture of second cervical vertebra, initial encounter for closed fracture Closed fracture of right scapula Qualifiers: Encounter type: initial encounter Scapula location: coracoid process Fracture alignment: displaced Qualified Code(s): S42.131A - Displaced fracture of coracoid process, right shoulder, initial encounter for closed fracture Discharge Date/Time: 01/23/19 13:02 Interventions: ED Discharge Assessment Last Done: 01/23/19 13:01 Prescriptions: No Action morphine 100 mg Tablet Extended Release 100 mg PO Q8H RF: 0 morphine 15 mg Tablet Extended Release 15 mg PO Q8H RF: 0 furosemide 20 mg Tablet 20 mg PO BID RF: 0 Eliquis 5 mg Tablet 5 mg PO BID RF: 0 potassium chloride 10 mEq Tablet Extended Release 10 meq PO BID RF: 0 oxycodone 15 mg Tablet 15 mg PO PRN PRN (Reason: Breakthrough Pain) RF: 0 docusate sodium 100 mg Tablet 100 mg PO BID RF: 0 methylphenidate HCl 5 mg Tablet 5 mg PO BID RF: 0 Referrals: Dio Muniz MD [Primary Care Provider] -
--- NOTE | 2019-01-23 10:31 | DI.CT.S_ITS ---
PROCEDURE: CT HEAD/BRAIN WO CON INDICATIONS: fall 2 days ago on eliquis TECHNIQUE: Noncontrast 4.5 mm thick angled axial sections acquired from the foramen magnum to the vertex, with coronal and sagittal reformats. For radiation dose reduction, the following was used: automated exposure control, adjustment of mA and/or kV according to patient size. COMPARISON: None. FINDINGS: Image quality: Excellent. CSF spaces: Basal cisterns are patent. No extra-axial fluid collections. The ventricles are symmetric in size and shape. There is mild cerebral volume loss, with resultant ventricular and sulcal prominence. Brain: No intracranial hemorrhage, mass, or mass effect. There are subcortical, periventricular and deep white matter hypodensities consistent with mild chronic small vessel ischemic changes. There is intracranial internal carotid artery atherosclerosis. Skull and face: Calvarium and visualized facial bones appear intact, without suspicious lesions. Sinuses: Visualized sinuses and mastoids are clear. IMPRESSION: 1. No acute intracranial abnormality. 2. Mild cerebral volume loss and chronic white matter small vessel ischemic changes. Dictated by: Jimmy Andrade M.D. on 01/23/2019 at 10:47 Approved by: Jimmy Andrade M.D. on 01/23/2019 at 10:49
--- NOTE | 2019-01-23 10:31 | DI.CT.S_ITS ---
PROCEDURE: CT CERVICAL SPINE WO CON INDICATIONS: severe neck pain after fall 2 days ago TECHNIQUE: Noncontrast 3 mm thick sections acquired from the skull base to the T4 level. Sagittal and coronal reformats were then constructed. For radiation dose reduction, the following was used: automated exposure control, adjustment of mA and/or kV according to patient size. COMPARISON: [facility], [place], BONE SCAN WHOLE BODY, 08/25/2016, 14:54. [facility], CT, CT UE LT WO CON, 08/21/2018, 12:03. FINDINGS: Image quality: There is mild motion artifact. Bones: The visualized osseous structures demonstrate a diffusely heterogeneous mottled appearance consistent with extensive osseous metastatic disease as seen on the prior studies. There is a comminuted fracture of C2 with mild impaction at the base of the odontoid. Fracture also involves the posterior elements including the right pedicle and spinous process. No other definite acute fracture within the cervical spine. There are mild superior endplate compression deformities of the T2 and T3 vertebral bodies of indeterminate acuity. There is fusion of the C5 and C6 vertebral bodies. There is a mildly displaced acute appearing fracture in the right scapula through the base of the coracoid process. An old left humeral neck fracture is redemonstrated. Soft tissues: There is mild prevertebral soft tissue swelling at C1-C2. No paravertebral hematomas. No apical pneumothoraces. There are small to moderate pleural effusions within the visualized lungs with areas of atelectasis. IMPRESSION: 1. Comminuted fracture of C2 as described. 2. Mild superior endplate compression deformities of the T2 and T3 vertebral bodies of indeterminate acuity. 3. Extensive osseous metastatic disease redemonstrated. 4. Mildly displaced acute appearing fracture of the right scapula through the base of the coracoid process. 5. Bilateral pleural effusions partially visualized. Recommend dedicated chest x-ray for further evaluation. 6. Old left humeral neck fracture. Findings discussed with Dr. Mauricio on 01/23/19 at 10:55 AM. Dictated by: Jimmy Andrade M.D. on 01/23/2019 at 10:49 Approved by: Jimmy Andrade M.D. on 01/23/2019 at 11:03
--- NOTE | 2019-01-23 10:47 | PC.NURSE ---
oxygen resumed on 4L for a oxygenation of 84% on ra.
--- NOTE | 2019-01-23 11:05 | DI.RAD.S_ITS ---
PROCEDURE: XR CHEST 1V INDICATIONS: hypoxia TECHNIQUE: One view of the chest was acquired. COMPARISON: None. FINDINGS: Surgical changes and devices: None. Lungs and pleura: Prominent perihilar interstitial markings are identified. There are hazy bibasilar areas of increased attenuation to partially obscure the diaphragms. No definite pneumothorax is appreciated. Mediastinum: Mediastinal contours appear normal. Heart size is borderline enlarged. Bones and chest wall: No suspicious bony lesions. Overlying soft tissues appear unremarkable. IMPRESSION: 1. Moderate pulmonary vascular congestion with associated by lateral layering pleural effusions. Superimposed pneumonia is difficult to exclude. 2. Borderline cardiomegaly. Dictated by: Keith Cobos M.D. on 01/23/2019 at 10:32 Approved by: Keith Cobos M.D. on 01/23/2019 at 10:45
[2019-01-23 11:19] LABS: Add Manual Diff / Slide Review NO; Basophils Absolute Auto 100 /uL (0-100); Basophils Percent Auto 0.9 % (0-2); Eosinophils Absolute Auto 100 /uL (0-450); Eosinophils Percent Auto 1.5 % (2-4); Hematocrit 28.6 % (41-53); Hemoglobin 9.4 g/dL (13.5-17.5); Lymphocytes Absolute Auto 1000 /uL (1100-4500); Lymphocytes Percent Auto 12.2 % (25-40); Mean Corpuscular HGB Conc 32.8 % (30-36); Mean Corpuscular Hemoglobin 30.9 PG (26-34); Mean Corpuscular Volume 94.2 fL (80-100); Monocytes Absolute Auto 400 /uL (0-900); Monocytes Percent Auto 4.5 % (3-14); Neutrophils Absolute Auto 6400 /uL (1500-7000); Neutrophils Percent Auto 80.9 % (50-75); Platelet Count 121 X10^3/uL (150-400); Red Blood Cell Count 3.03 X10^6/uL (4.5-5.9); Red Cell Distribution Width 23.7 % (11.6-14.8)
[2019-01-23 11:21] LABS: INR 1.6 (0.9-1.3)
[2019-01-23 11:23] LABS: PTT Partial Thromboplastin Tim 33 SECONDS (26.4-36.2)
[2019-01-23 11:24] LABS: Alanine Aminotransferase 18 IU/L (21-72); Albumin 2.7 g/dL (3.5-5.0); Albumin Globulin Ratio 0.9 (1.0-2.8); Alkaline Phosphatase 274 U/L (38-126); Aspartate Aminotransferase 57 IU/L (17-59); BUN Creatinine Ratio 55.5 (6-22); Bilirubin Total 1.1 mg/dL (0.2-1.3); Blood Urea Nitrogen 61 mg/dL (9-20); Calcium 8.1 mg/dL (8.4-10.2); Carbon Dioxide 30 mmol/L (22-32); Chloride 99 mmol/L (98-107); Estimated Glomerular Filt Rate > 60.0 mL/min (>60); Globulin 3.1 g/dL (1.7-4.1); Glucose 98 mg/dL (80-110); HEMOLYSIS < 15 (0-50); Potassium 4.1 mmol/L (3.4-5.1); Sodium 136 mmol/L (137-145); Total Protein 5.8 g/dL (6.3-8.2)
[2019-01-23] MEDS: HYDROMORPHONE 0.5 MG INJ IV (11:28)
[2019-01-23 11:41] LABS: Anisocytosis 2+; Polychromasia 2+
== END 2019-01-23 13:02 | disposition short-term general hospital (02) ==
PROVIDERS: Emergency Provider Emergency Medicine; Family Provider Family Medicine; PCP Family Medicine
DX: S12.101A Unspecified nondisplaced fracture of second cervical vertebra, initial encounter for closed fracture (principal); S42.131A Displaced fracture of coracoid process, right shoulder, initial encounter for closed fracture
CPT/HCPCS: 36415; 70450; 71045; 72125; 72202; 80053; 85025; 85610; 85730; 96374; 99283; 99285; J1170